=== PATIENT | female | born 1960 | race Caucasian/White ===

== ENCOUNTER → 2016-08-06 | Outpatient (CLI) | payer MEDICARE ==
[~2016-08-06] VITALS: Ht 157.5 cm; Wt 86.2 kg
[~2016-08-06] MED LIST: BUSPIRONE HCL10 MG PO; CYCLOBENZAPRINE5 MG PO; ELIQUIS 2.5 MG2.5 MG PO; GABAPENTIN600 MG PO; IBUPROFEN800 MG PO; LISINOPRIL20 MG PO; NORCO 7.5-3251 EACH PO; PERCOCET 5/325 T1 EA PO; ZOFRAN4 MG PO
[2016-08-06 10:31] LABS: HEMOGLOBIN 11.9 gm/dl (12.3-15.3); RED BLOOD COUNT 4.17 M/UL (4.00-5.10); WHITE BLOOD COUNT 5.7 K/UL (4.5-11.0)
[2016-08-06 10:55] LABS: BUN/CREATININE RATIO 19 (0-10)
== END ==
LOC: OPSV2 09:30
PROVIDERS: Orthopaedic Surgery
DX: Z01.812 Encounter for preprocedural laboratory examination (principal); M17.11 Unilateral primary osteoarthritis, right knee
CPT/HCPCS: 36415; 80048; 81001; 85027; 87081

== ENCOUNTER → 2016-08-15 | Outpatient (CLI) | payer MEDICARE ==
[2016-08-15 12:04] LABS: BUN/CREATININE RATIO 16 (0-10)
== END ==
LOC: LAB 10:50
PROVIDERS: Orthopaedic Surgery
DX: Z01.812 Encounter for preprocedural laboratory examination (principal); M19.90 Unspecified osteoarthritis, unspecified site
CPT/HCPCS: 36415; 80048; 86850; 86900; 86901

== ENCOUNTER 2016-08-16 09:31 | Inpatient (IN) | payer MEDICARE ==
[~2016-08-16] VITALS: Ht 157.5 cm; Wt 99.8 kg
[~2016-08-16 09:31] MED LIST changes: -ELIQUIS 2.5 MG2.5 MG PO; -IBUPROFEN800 MG PO; -PERCOCET 5/325 T1 EA PO
[2016-08-17 07:11] LABS: HEMOGLOBIN 10.5 gm/dl (12.3-15.3); RED BLOOD COUNT 3.7 M/UL (4.00-5.10); WHITE BLOOD COUNT 7.8 K/UL (4.5-11.0)
[2016-08-17 07:15] LABS: BUN/CREATININE RATIO 15 (0-10)
[2016-08-18 04:51] LABS: HEMOGLOBIN 10.9 gm/dl (12.3-15.3); RED BLOOD COUNT 3.84 M/UL (4.00-5.10); WHITE BLOOD COUNT 6.8 K/UL (4.5-11.0)
[2016-08-18 05:13] LABS: BUN/CREATININE RATIO 12 (0-10)
[2016-08-19 04:28] LABS: HEMOGLOBIN 10.6 gm/dl (12.3-15.3); RED BLOOD COUNT 3.62 M/UL (4.00-5.10); WHITE BLOOD COUNT 6.4 K/UL (4.5-11.0)
[2016-08-19 04:43] LABS: BUN/CREATININE RATIO 20 (0-10)
[2016-08-20 06:11] LABS: BUN/CREATININE RATIO 28 (0-10)
[2016-08-21] MEDS ORDERED: IBUPROFEN800 MG PO (08:33)
[2016-08-21] MEDS ORDERED: PERCOCET 5/325 T1 EA PO (16:03)
[2016-08-21] MEDS ORDERED: ELIQUIS 2.5 MG2.5 MG PO (16:04)
== END 2016-08-21 17:18 | disposition home health service (06) | DRG 470 ==
LOC: ZOBSOF 09:31 → M/S 09:31 → ZOBSOF 10:23 → M/S 17:51
PROVIDERS: Internal Medicine; ADMIT Orthopaedic Surgery
PROC: 0SRC0J9 Replacement of Right Knee Joint with Synthetic Substitute, Cemented, Open Approach (ICD-10-PCS; principal; 2016-08-16 15:15)
DX: M17.11 Unilateral primary osteoarthritis, right knee (principal); M25.561 Pain in right knee; I10 Essential (primary) hypertension; Z98.890 Other specified postprocedural states; Z79.899 Other long term (current) drug therapy; Z79.1 Long term (current) use of non-steroidal anti-inflammatories (NSAID); Z80.8 Family history of malignant neoplasm of other organs or systems; Z82.49 Family history of ischemic heart disease and other diseases of the circulatory system; M79.7 Fibromyalgia; D64.9 Anemia, unspecified
CPT/HCPCS: 36415; 73560; 80048; 85027; 97110; 97116; 97530; 97535; C1776; J0690; J1200; J2250; J2270; J2765; J2795; J3010; J3370; J7030; J7050; J7120